=== PATIENT | male | born 1960 | race Caucasian/White ===

== ENCOUNTER → 2025-02-22 | Outpatient (CLI) | payer BC ==
[~2025-02-22] MED LIST: PROHANCE 279.3MG/ML 15ML VIAL As Ordered ONE; PROHANCE 279.3MG/ML 5ML VIAL As Ordered ONE
== END ==
LOC: M RAD 08:02
PROVIDERS: ATTEND Urology
DX: N42.89 Other specified disorders of prostate (principal)
CPT/HCPCS: 72197; A9576

== ENCOUNTER → 2025-03-16 | Outpatient (REF) | payer BC | LOC: M SMT 13:13 | PROVIDERS: ATTEND Urology | DX: R97.20 Elevated prostate specific antigen [PSA] (principal) ==